=== PATIENT | female | born 2000 | race Asian ===

== ENCOUNTER 2019-04-10 16:01 | Observation (INO) | payer OTHER ==
[~2019-04-10] VITALS: Ht 160 cm; Wt 60.4 kg
[2019-04-10] MEDS ORDERED: KETOROLAC TROMETHAMINE 30 MG/ML VIAL IV STA (16:36)
[2019-04-10] MEDS ORDERED: SODIUM CHLORIDE 0.9% 1000ML 1,000 ML IV STA (16:36)
[2019-04-10] MEDS ORDERED: ONDANSETRON HCL INJ 2MG/ML 2ML 2 MG/ML VIAL IV STA (16:36)
[2019-04-10 17:28] LABS: BASOPHILS % 0.1 % (0.0-1.0); EOSINOPHILS # (AUTO) 0.6 (0.0-0.4); EOSINOPHILS % 4.3 % (0.0-6.0); HEMATOCRIT 37.8 % (34.2-44.1); HEMOGLOBIN 12.9 g/dL (12.0-16.0); LYMPHOCYTES # (AUTO) 1.3 (1.0-3.2); LYMPHOCYTES % 9.5 % (18.0-39.1); MEAN CORPUSCULAR HEMOGLOBIN 31.7 pg (28-32); MEAN CORPUSCULAR HGB CONC 34.1 g/dL (31-35); MEAN CORPUSCULAR VOLUME 92.9 fL (81-99); MONOCYTES # (AUTO) 0.8 (0.2-0.8); MONOCYTES % 5.4 % (4.4-11.3); NEUTROPHILS # (AUTO) 11.2 (2.1-6.9); NEUTROPHILS % 80.3 % (38.7-80.0); PLATELET COUNT 201 x10e3/uL (140-360); RED BLOOD COUNT 4.07 x10e6/uL (3.6-5.1); RED CELL DISTRIBUTION WIDTH 11.1 % (11.7-14.4)
[2019-04-10 17:32] LABS: BILIRUBIN,URINE NEGATIVE (NEGATIVE); CLARITY,URINE SL CLOUDY (CLEAR); COLOR,URINE YELLOW (YELLOW); KETONES,URINE NEGATIVE (NEGATIVE); LEUKOCYTE ESTERASE ,URINE NEGATIVE (NEGATIVE); NITRITE,URINE NEGATIVE (NEGATIVE); PROTEIN,URINE DIPSTICK NEGATIVE (NEGATIVE); URINE UROBILINOGEN 0.2 mg/dL (0.2 - 1)
[2019-04-10 17:42] LABS: BACTERIA,URINE MANY /HPF; EPITHELIAL CELLS,URINE MODERATE /LPF; MUCUS,URINE MODERATE (RARE); PREGNANCY TEST, URINE NEGATIVE (NEGATIVE); RBC,URINE 0-5 /HPF (0-5)
[2019-04-10 18:13] LABS: ALANINE AMINOTRANSFERASE 6 IU/L (0-55); ALBUMIN 3.7 g/dL (3.5-5.0); ALBUMIN/GLOBULIN RATIO 1.3 (0.8-2.0); ALKALINE PHOSPHATASE 44 IU/L (40-150); ANION GAP 11.7 mmol/L (8-16); BLOOD UREA NITROGEN 14 mg/dL (7-26); BUN/CREATININE RATIO 18 (6-25); CALCIUM 8.8 mg/dL (8.4-10.2); CARBON DIOXIDE 25 mmol/L (22-29); CHLORIDE 103 mmol/L (98-107); CREATININE, SERUM 0.76 mg/dL (0.57-1.11); EST GLOMERULAR FILTRATION RATE > 60 ML/MIN (60-); GLUCOSE 74 mg/dL (74-118); POTASSIUM 3.7 mmol/L (3.5-5.1); SODIUM 136 mmol/L (136-145)
--- NOTE | 2019-04-10 19:40 | Diagnostic Imaging Report ---
EXAM: CT Abdomen and Pelvis WITH contrast INDICATION: Abdominal pain. Appendicitis. Ovarian abscess. Right lower quadrant pain. COMPARISON: None. TECHNIQUE: Abdomen and pelvis were scanned utilizing a multidetector helical scanner from the lung base to the pubic symphysis after administration of IV contrast. Coronal and sagittal reformations were obtained. Routine protocol was performed. Scan was performed when during portal venous phase. IV CONTRAST: 100 mL of Isovue-370 ORAL CONTRAST: Water COMPLICATIONS: None RADIATION DOSE: Total DLP: 219.7 mGy*cm Estimated effective dose: (DLP x 0.015 x size factor) mSv CTDIvol has been reviewed. It is below the limits set by the Radiation Protocol Committee (RPC). Dose modulation, iterative reconstruction, and/or weight based adjustment of the mA/kV was utilized to reduce the radiation dose to as low as reasonably achievable. FINDINGS: LINES and TUBES: None. LOWER THORAX: Unremarkable HEPATOBILIARY: No focal hepatic lesions. No biliary ductal dilation. GALLBLADDER: No radio-opaque stones or sludge. No wall thickening. SPLEEN: No splenomegaly. PANCREAS: No focal masses or ductal dilatation. ADRENALS: No adrenal nodules KIDNEYS/URETERS: Kidneys enhance symmetrically. No hydronephrosis. No cystic or solid mass lesions. No stones. GI TRACT: No abnormal distention, wall thickening, or evidence of bowel obstruction. Thickened appendix with inflammatory change in the right lower quadrant of the abdomen consistent with acute appendicitis. No definite perforation or abscess. Prominent lymph nodes in the right lower quadrant of the abdomen likely reactive. PELVIC ORGANS/BLADDER: Likely right corpus luteal cyst. Small left adnexal cyst.. LYMPH NODES: No lymphadenopathy. VESSELS: Unremarkable. PERITONEUM / RETROPERITONEUM: Free fluid in the pelvis. No free air is seen. BONES: Unremarkable. SOFT TISSUES: Unremarkable. IMPRESSION: Thickened appendix with inflammatory change in the right lower quadrant of the abdomen consistent with acute appendicitis. No definite perforation or abscess. Prominent lymph nodes in the right lower quadrant of the abdomen likely reactive. Findings discussed with the ER physician Dr. Shaffer by Dr. Oleary on 04/10/2019 at 7:30 PM Signed by: Dr. Jackson Oleary M.D. on 04/10/2019 7:37 PM
[2019-04-10] MEDS ORDERED: CEFTRIAXONE SOD 2 GM/NS 100 ML 100 ML IV ONE (19:45)
[2019-04-10] MEDS ORDERED: IOPAMIDOL 370 MG/ML 200 ML INFUS..BTL INJ ONE (19:55)
[2019-04-10] MEDS ORDERED: SODIUM CHLORIDE 0.9% 50ML 50 ML ONE (19:55)
[2019-04-10] MEDS ORDERED: MORPHINE SULFATE INJ 4 MG/ML INJ 1ML IV PRN (20:00)
[2019-04-10] MEDS ORDERED: ACETAMINOPHEN 1000 MG/100 ML IV PRN (20:00)
[2019-04-10] MEDS ORDERED: MORPHINE SULFATE 2 MG/ML SYR 1ML IV PRN (20:00)
--- OUTSIDE RECORDS SUMMARY | 2019-04-10 22:00 | XMS REPORT ---
Author Author [facility] Address Unknown Phone Unavailable Care Team Providers Care Supervisor [employer] Name Role Phone [address] Unavailable Unavailable Problems This patient has no known problems. Allergies, Adverse Reactions, Alerts This patient has no known allergies or adverse reactions. Medications This patient has no known medications. Results Test Description Test Time Test Comments Text Results Atomic Results Result Comments CT ABDOMEN/PELVIS W 2019-04-10 19:26:00 [place] [address] Patient Name: CESAR DECKER MR #: [id number] : 2000 Age/Sex: 18/F Req #: [id number] Adm Physician: Ordered by: GRAEME MERRILL CLERICAL OFFICE Report #: [id number] Location: ER Room/Bed: Procedure: [id number] CT/CT ABDOMEN/PELVIS W Exam Date: 04/10/19 Exam Time: 1913 REPORT STATUS: Signed EXAM: CT Abdomen and Pelvis WITH contrast INDICATION: Abdominal pain. Appendicitis. Ovarian abscess. Right lower quadrant pain. COMPARISON: None. TECHNIQUE: Abdomen and pelvis were scanned utilizing a multidetector helical scanner from the lung base to the pubic symphysis after administration of IV contrast. Coronal and sagittal reformations were obtained. Routine protocol was performed. Scan was performed when during portal venous phase. IV CONTRAST: 100 mL of Isovue-370 ORAL CONTRAST: Water COMPLICATIONS: None RADIATION DOSE: Total DLP: 219.7 mGy*cm Estimated effective dose: (DLP x 0.015 x size factor) mSv CTDIvol has been reviewed. It is below the limits set by the Radiation Protocol Committee (RPC). Dose modulation, iterative reconstruction, and/or weight based adjustment of the mA/kV was utilized to reduce the radiation dose to as low as reasonably achievable. FINDINGS: LINES and TUBES: None. LOWER THORAX: Unremarkable HEPATOBILIARY: No focal hepatic lesions. No biliary ductal dilation. GALLBLADDER: No radio-opaque stones or sludge. No wall thickening. SPLEEN: No splenomegaly. PANCREAS: No focal masses or ductal dilatation. ADRENALS: No adrenal nodules KIDNEYS/URETERS: Kidneys enhance symmetrically. No hydronephrosis. No cystic or solid mass lesions. No stones. GI TRACT: No abnormal distention, wall thickening, or evidence of bowel obstruction. Thickened appendix with inflammatory change in the right lower quadrant of the abdomen consistent with acute appendicitis. No definite perforation or abscess. Prominent lymph nodes in the right lower quadrant of the abdomen likely reactive. PELVIC ORGANS/BLADDER: Likely right corpus luteal cyst. Small left adnexal cyst.. LYMPH NODES: No lymphadenopathy. VESSELS: Unremarkable. PERITONEUM / RETROPERITONEUM: Free fluid in the pelvis. No free air is seen. BONES: Unremarkable. SOFT TISSUES: Unremarkable. IMPRESSION: Thickened appendix with inflammatory change in the right lower quadrant of the abdomen consistent with acute appendicitis. No definite perforation or abscess. Prominent lymph nodes in the right lower quadrant of the abdomen likely reactive. Findings discussed with the ER physician Dr. Merrill by Dr. Oleary on 04/10/2019 at 7:30 PM Signed by: Dr. Jackson Oleary M.D. on 04/10/2019 7:37 PM Dictated By: JACKSON OLEARY MD, MD 36 Transcribed By: GRACIELA on 04/10/191936 COPY TO: GRAEME MERRILL NP
--- NOTE | 2019-04-10 22:11 | Pre Op History & Physical ---
CHIEF COMPLAINT: Abdominal pain. HISTORY OF PRESENT ILLNESS: The patient is an otherwise healthy 18-year-old female, who developed abdominal pain beginning in the periumbilical region, later localized into the right lower quadrant on Wednesday. No fever. No chills. The patient experienced vomiting on Wednesday, none after that. Because of the persistence of the pain, she came to the emergency room, where she had a CT scan that revealed acute appendicitis. White count was 13,000. Electrolytes were normal. PAST MEDICAL HISTORY: History of depression, for which she is takes Sertraline. SURGICAL HISTORY: Consists of right hand surgery. She has no medical conditions. MEDICATIONS: Sertraline as previously stated. ALLERGIES: SHE HAS NO KNOWN ALLERGIES. SOCIAL HISTORY: The patient does not drink, does not smoke. REVIEW OF SYSTEMS: Significant for what has already been stated. PHYSICAL EXAMINATION: GENERAL: Reveals a 18-year-old female, in no acute distress. HEAD, EYES, EARS, NOSE, AND THROAT: Reveals no acute process. NECK: Supple. LUNGS: Clear. HEART: Reveals regular sinus rhythm. ABDOMEN: Reveal right lower quadrant tenderness with no rebound. Bowel sounds are present. EXTREMITIES: Reveal no clubbing, cyanosis, or edema. NEUROLOGIC: Nonfocal. LABORATORY DATA: Admission labs and x-rays have already been discussed. ASSESSMENT: Appendicitis. PLAN: To proceed with appendectomy. Hydrate. Give antibiotics. The plans have been discussed with the patient and she agrees with surgical plans. MD YOGI Mauro/JOSEPHINE /[id number]
[2019-04-10] MEDS ORDERED: CEFTRIAXONE SOD 2 GM VIAL ONE (22:31)
[2019-04-10 22:32] VITALS: BP 93/55
--- NOTE | 2019-04-10 22:32 | NUR ---
RECEIVED PATIENT FROM ER AT THIS TIME VIA WHEELCHAIR. PATIENT AMBULATED TO BED. LUNG SOUNDS CLEAR. BOWEL SOUNDS ACTIVE. PATIENT REPORTS PAIN 5-6 WHEN NOT MOVING AND 6-8 WHEN MOVING. LAST BM 04/10. SKIN INTACT. R AC 20G IV ASYMPTOMATIC, INTACT, AND PATENT. BED LOCKED IN LOWEST POSITION, SIDE RAILS UPX2, CALL LIGHT IN REACH.
[2019-04-10] MEDS: SODIUM CHLORIDE 0.9% 1000ML 1,000 ML IV SCH (22:50)
[2019-04-10] MEDS: METRONIDAZOLE 500MG/NS 100ML IV SCH (22:50)
--- NOTE | 2019-04-10 23:20 | NUR ---
CONSENT COMPLETED AT THIS TIME. BOYFRIEND AT BEDSIDE, PATIENT VERBALIZED PERMISSION FOR HIM TO STAY IN ROOM TO DISCUSS HISTORY, CURRENT HEALTH, AND PLAN MOVING FORWARD.
[2019-04-10 23:24] VITALS: BP 93/55
[2019-04-11] VITALS (8 sets, daily range): BP systolic 83–96; BP diastolic 46–61
[2019-04-11] MEDS ORDERED: SODIUM CHLORIDE 0.9% 100 ML ONE (00:32)
[2019-04-11] MEDS: ONDANSETRON HCL INJ 2MG/ML 2ML 2 MG/ML VIAL IV PRN ×2 (00:35→18:43)
[2019-04-11] MEDS: SODIUM CHLORIDE 0.9% 1000ML 1,000 ML IV SCH ×2 (03:50→12:00)
[2019-04-11] MEDS: METRONIDAZOLE 500MG/NS 100ML IV SCH ×3 (04:58→22:40)
[2019-04-11] MEDS ORDERED: TRAZODONE HCL50 MG PO (05:05)
[2019-04-11] MEDS ORDERED: SERTRALINE HCL50 MG PO (05:05)
[2019-04-11 05:45] LABS: BASOPHILS % 0.2 % (0.0-1.0); EOSINOPHILS # (AUTO) 0.7 (0.0-0.4); EOSINOPHILS % 6.3 % (0.0-6.0); HEMATOCRIT 33.2 % (34.2-44.1); HEMOGLOBIN 10.9 g/dL (12.0-16.0); LYMPHOCYTES # (AUTO) 1.8 (1.0-3.2); LYMPHOCYTES % 16.9 % (18.0-39.1); MEAN CORPUSCULAR HGB CONC 32.8 g/dL (31-35); MEAN CORPUSCULAR VOLUME 94.3 fL (81-99); MONOCYTES # (AUTO) 0.8 (0.2-0.8); MONOCYTES % 7.4 % (4.4-11.3); NEUTROPHILS # (AUTO) 7.5 (2.1-6.9); NEUTROPHILS % 68.9 % (38.7-80.0); PLATELET COUNT 195 x10e3/uL (140-360); RED BLOOD COUNT 3.52 x10e6/uL (3.6-5.1); RED CELL DISTRIBUTION WIDTH 11.2 % (11.7-14.4)
[2019-04-11 06:11] LABS: ALBUMIN 2.9 g/dL (3.5-5.0); ALKALINE PHOSPHATASE 40 IU/L (40-150); ANION GAP 8.9 mmol/L (8-16); BLOOD UREA NITROGEN 14 mg/dL (7-26); BUN/CREATININE RATIO 20 (6-25); CALCIUM 8.3 mg/dL (8.4-10.2); CARBON DIOXIDE 23 mmol/L (22-29); CHLORIDE 108 mmol/L (98-107); EST GLOMERULAR FILTRATION RATE > 60 ML/MIN (60-); GLUCOSE 63 mg/dL (74-118); POTASSIUM 3.9 mmol/L (3.5-5.1); SODIUM 136 mmol/L (136-145)
[2019-04-11 06:33] LABS: ALANINE AMINOTRANSFERASE < 6 IU/L (0-55)
--- NOTE | 2019-04-11 07:00 | NUR ---
Rcvd patient in report this am. Patient is asleep in bed at this time. No s/s of distress noted. Patient is NPO for surgery today
--- NOTE | 2019-04-11 09:00 | NUR ---
Patient is AAOx3. patient is NPO at this time. Lung hernandes clear to auscultation. Bowel sounds present. Abdomen tender to touch. No c/o pain at this time. No edema noted. Right AC IV in place. IV fluids infusing
--- NOTE | 2019-04-11 10:45 | NUR ---
Patient went to OR at this time.
[2019-04-11] MEDS ORDERED: BUPIVACAINE 0.25%/EPI 30ML SDV INJ ONE (11:23)
[2019-04-11] MEDS ORDERED: HYDROMORPHONE 2MG/ML 2 MG/ML ML IV PRN (13:15)
--- NOTE | 2019-04-11 13:50 | Operative Report ---
DATE OF PROCEDURE: 04/11/2019 SURGEON: Mohan Butt MD PREOPERATIVE DIAGNOSIS: Acute appendicitis. POSTOPERATIVE DIAGNOSIS: Final path report pending. PROCEDURE PERFORMED: Diagnostic laparoscopy and laparoscopic appendectomy. ANESTHESIA: General. ESTIMATED BLOOD LOSS: Minimal. DRAINS: None. COMPLICATIONS: None. INDICATION AND FINDINGS: The patient is a 18-year-old female admitted complaining of abdominal pain since Wednesday. The pain was reported as having started in the periumbilical area and then later localized into the right lower quadrant. She vomited twice on Wednesday. No diarrhea. No vomiting. No similar episodes. The patient presented to the emergency room at [facility], where she had a CT scan that revealed acute appendicitis. No other pathology was found. [place] [address]. Physical examination revealed a 18-year-old female, in no acute distress. Had some mild right lower quadrant tenderness without any peritoneal findings. INTRAOPERATIVE FINDINGS: The patient's appendix appeared to be grossly normal. There was some increased vascularity in the area of the tip, however, this does not correspond to the findings described in the CT scan. Because of this, I performed a diagnostic laparoscopy. The small bowel was run in its entirety from the ligament of Treitz down to the terminal ileum and it appeared to be normal so was the cecum and the ascending colon. The pelvic, the tubes, and ovaries were normal as was the uterus. There was some serous fluid in the cul-de-sac. There was what appeared to have been a follicular cyst on the right ovary. The fluid in the pelvis was aspirated, irrigated, suctioned and sent for culture and sensitivity. DESCRIPTION OF PROCEDURE: With the patient lying on the operative table in the supine position and after administered general anesthesia, she was prepped and draped for laparoscopic appendectomy. The procedure was begun by establishing the pneumoperitoneum in the umbilical site after stab wound was made in that location and the saline drop test was performed and pneumoperitoneum was insufflated to 15 mm of pressure and then the 11/12 trocar was placed in that location. The patient was placed with the head-down position and rotated to the left and then we placed 2 lateral working ports in the right lower quadrant and right upper quadrant. Using the 5 mm trocar, the appendix was initially visualized and then it was mobilized through the two 5 mm trocars. A rent was made in the mesoappendix and appendectomy was performed by firing of Endo-ALEXX using the blue load at the appendiceal cecal junction and firing the same stapler using the white load. The appendix was placed in an endobag and removed. We then again performed the previously described diagnostic laparoscopy and findings noted above and is to be mentioned that the gallbladder appeared normal without any signs of inflammation and the liver appeared free of any masses. At this point, we aspirated the fluid in the pelvis, irrigated the pelvis until the effluent was clear and inspected the operative field. We irrigated the staple lines, which were intact and there was no bleeding. No evidence of bowel injury and at that point, we released the pneumoperitoneum and closed the wound using 0-Vicryl for the umbilical fascia and 3-0 Vicryl for the subcutaneous tissue in that location and then the skin of all the ports were closed with a 5-0 subcuticular Vicryl. Sterile dressing was applied. The patient tolerated the procedure well and was taken to recovery room in stable condition. MD YOGI Mauro/JOSEPIHNE /[id number]
--- NOTE | 2019-04-11 13:55 | NUR ---
Visit made by the Spiritual Care Department Pastoral Visitor, Radha George. Pt sleeping soundly and no family present. Pastoral Visitor left a card describing availability of microbiology supervisor and instructions on how to contact a microbiology supervisor. FATMATA DUPREE Defensive Driving Instructor Spiritual Care Department O: [phone] Pager: [phone] ([phone] calling from)
--- NOTE | 2019-04-11 13:57 | NUR ---
Patient returned from OR at this time. 3 trochar sites noted. Covered with bandaids. No c/o pain at this time. Patient resting in bed. Diet advanced to clear liquids. No s/s of distress noted
[2019-04-11] MEDS ORDERED: LIDOCAINE HCL 2% LOCAL INJ 5 ML SDV VIAL INJ ONE (15:06)
[2019-04-11] MEDS ORDERED: SEVOFLURANE INHAL SOLN 250 ML PEN BTL ONE (15:06)
[2019-04-11] MEDS ORDERED: KETOROLAC TROMETHAMINE 30 MG/ML VIAL ONE (15:06)
[2019-04-11] MEDS ORDERED: PROPOFOL IV EMULSION 10 MG/ML 20 ML VIAL ONE (15:06)
[2019-04-11] MEDS ORDERED: ONDANSETRON HCL INJ 2MG/ML 2ML 2 MG/ML VIAL ONE (15:06)
[2019-04-11] MEDS ORDERED: ROCURONIUM BROMIDE 10 MG/ML 5ML VIAL ONE (15:06)
[2019-04-11] MEDS ORDERED: DEXAMETHASONE SOD PHOS INJ 4 MG/ML VIAL ONE (15:06)
--- NOTE | 2019-04-11 16:11 | NUR ---
Patient voided at this time.
[2019-04-11] MEDS ORDERED: MIDAZOLAM HCL 2 MG/2 ML VIAL ONE (17:51)
[2019-04-11] MEDS ORDERED: FENTANYL CITRATE/PF 100MCG/2 ML INJ ONE (17:51)
[2019-04-11] MEDS: HYDROCODONE/APAP 7.5MG-325MG 1 EA TAB PO PRN (18:43)
--- NOTE | 2019-04-11 19:00 | NUR ---
RECEIVED PATIENT IN REPORT. PATIENT RESTING IN BED, SCDS ON. MINIMAL PAIN REPORTED, 12/04. PATIENT A&oX4. NO S&S OF DISTRESS NOTED. R AC 20G IV ASYMPTOMATIC, INTACT, AND PATENT. BED LOCKED IN LOWEST POSITION, SIDE RAILS UPX2, CALL LIGHT IN REACH. FAMILY MEMBERS AT BEDSIDE.
[2019-04-11] MEDS ORDERED: CEFTRIAXONE SOD 2 GM/NS 100 ML 100 ML IV SCH (20:00)
[2019-04-12] MEDS: HYDROCODONE/APAP 7.5MG-325MG 1 EA TAB PO PRN (01:04)
--- NOTE | 2019-04-12 01:04 | NUR ---
PATIENT REPORTED SOME BLEEDING FROM TROCHAR SITE AT [facility]. PATIENT HAD PUT [employer] PIERCING BACK IN, WHICH SEEMED TO BE PRESSING ON SITE. PATIENT REMOVED PIERCING AND VERBALIZED UNDERSTANDING THAT IT SHOULD STAY OUT UNTIL SITE HAD HEALED MORE. ORIGINAL BANDAID LEFT IN PLACE, REINFORCED WITH GAUZE OVER TOP, SECURED WITH TAPE. WILL MONITOR.
[2019-04-12] MEDS: SODIUM CHLORIDE 0.9% 1000ML 1,000 ML IV SCH ×3 (03:50→11:50)
[2019-04-12 04:00] VITALS: BP_SYST 86; BP_SYST 92; BP_DIAS 56; BP_DIAS 57
[2019-04-12] MEDS: METRONIDAZOLE 500MG/NS 100ML IV SCH (04:00)
[2019-04-12 06:15] LABS: BASOPHILS % 0.2 % (0.0-1.0); EOSINOPHILS # (AUTO) 0.1 (0.0-0.4); HEMATOCRIT 30.9 % (34.2-44.1); HEMOGLOBIN 10.4 g/dL (12.0-16.0); LYMPHOCYTES # (AUTO) 1.4 (1.0-3.2); LYMPHOCYTES % 11.1 % (18.0-39.1); MEAN CORPUSCULAR HEMOGLOBIN 31.3 pg (28-32); MEAN CORPUSCULAR HGB CONC 33.7 g/dL (31-35); MEAN CORPUSCULAR VOLUME 93.1 fL (81-99); MONOCYTES # (AUTO) 0.9 (0.2-0.8); NEUTROPHILS # (AUTO) 10.5 (2.1-6.9); NEUTROPHILS % 80.2 % (38.7-80.0); PLATELET COUNT 196 x10e3/uL (140-360); RED BLOOD COUNT 3.32 x10e6/uL (3.6-5.1); RED CELL DISTRIBUTION WIDTH 11.2 % (11.7-14.4)
[2019-04-12 06:30] LABS: ANION GAP 10.3 mmol/L (8-16); BLOOD UREA NITROGEN 8 mg/dL (7-26); BUN/CREATININE RATIO 12 (6-25); CALCIUM 8.3 mg/dL (8.4-10.2); CARBON DIOXIDE 22 mmol/L (22-29); CHLORIDE 110 mmol/L (98-107); CREATININE, SERUM 0.68 mg/dL (0.57-1.11); EST GLOMERULAR FILTRATION RATE > 60 ML/MIN (60-); GLUCOSE 93 mg/dL (74-118); POTASSIUM 4.3 mmol/L (3.5-5.1); SODIUM 138 mmol/L (136-145)
--- NOTE | 2019-04-12 07:30 | NUR ---
Rcvd patient in report this am. Patient is asleep in bed at this time. No s/s of distress noted
[2019-04-12 08:46] VITALS: BP 105/61
--- NOTE | 2019-04-12 09:00 | NUR ---
Patient is AAox3. Patient is post op lap appendectomy. Dressings clean and dry. NO c/o pain. Lung hernandes clear to auscultation. Bowel sounds present x4. Patient passing gas at this time. No s/s of distress noted
[2019-04-12 09:37] VITALS: BP 105/61
[2019-04-12 12:01] VITALS: BP 95/54
--- NOTE | 2019-04-12 13:00 | NUR ---
Patient pulled her own IV out from her right AC. No bleeding noted
[2019-04-12] MEDS ORDERED: TYLENOL WITH C1 EACH PO (13:12)
--- NOTE | 2019-04-12 14:03 | NUR ---
Patient discharged from facility to home. Patient assisted out via staff. Reviewed discharge instructions, follow up appts, and RX's given. Patient verbalized understanding. Mother at bedside
== END 2019-04-12 14:03 | disposition home or self-care (01) ==
LOC: ER 16:01 → ERHOLD 21:57 → INTOOBSV 21:57 → MED/SURG 22:34
PROVIDERS: ADMIT Surgery; ATTEND Surgery
DX: K36 Other appendicitis (principal); F32.9 Major depressive disorder, single episode, unspecified; K35.80 Unspecified acute appendicitis; N83.01 Follicular cyst of right ovary; Z01.812 Encounter for preprocedural laboratory examination
CPT/HCPCS: 36415 ×3; 49322; 74177; 80048; 80053 ×2; 81001; 81025; 85025 ×3; 87071; 87075; 87205; 88304; 88312; 88313; 88342; 99284; C1766; G0378 ×3; J0696 ×3; J1100; J1885 ×2; J2001; J2250; J2270; J2405 ×2; J2704; J3010; J7030 ×3; J7050; Q9967